=== PATIENT | male | born 1960 | race Caucasian/White ===

== ENCOUNTER 2021-06-23 11:55 | Emergency (ER) | payer OTHER ==
[2021-06-23 13:39] LABS: Absolute Lymphocytes (CBC) 1.6 K/uL (0.7-4.9); Basophils % 1.3 % (0-1.3); Hematocrit 42.8 % (39.6-49.0); Lymphocytes % 12.4 % (15.3-44.8); MPV 9.6 fL (7.6-11.3)
--- NOTE | 2021-06-23 13:57 | RAD REPORT ---
EXAM DESCRIPTION: CT - Abdomen Pelvis W Contrast - 06/23/2021 1:48 pm CLINICAL HISTORY: ABD PAIN COMPARISON: No comparisons TECHNIQUE: Biphasic, helical CT imaging of the abdomen and pelvis was performed following 100 ml non -ionic IV contrast. No oral contrast administered. All CT scans are performed using dose optimization technique as appropriate and may include automated exposure control or mA/KV adjustment according to patient size. FINDINGS: Stranding at the anterior right lung base is most likely scarring. No acute infiltrates se en. The liver, spleen, and pancreas show no suspicious findings. Gallbladder and biliary tree are also wi thout suspicious finding. Symmetric renal function is seen with no hydronephrosis or suspicious renal mass. No pyelonephritis o r acute parenchymal process. No bladder abnormalities. No adrenal abnormalities. Small 12 mm cyst is present posterior mid left kidney. No gastric dilatation or wall thickening. A few minimally prominent small bowel loops are present wit hout discrete mass or wall thickening. No colon mass or colon dilatation seen. Diverticulosis is mini mal. No appendicitis. No free air, free fluid or inflammatory stranding. No mass or bulky lymphaden opathy. Minimal fat extending into each inguinal canal. No suspicious bony findings. IMPRESSION: Contrast enhanced CT abdomen and pelvis imaging shows no emergent finding. Patient has a few minimally prominent small bowel loops in the mid abdomen. This is nonspecific but c ould indicate a mild enteritis.
[2021-06-23 14:10] LABS: ALT/SGPT 32 U/L (12-78); Albumin 3.3 g/dL (3.4-5.0); Alkaline Phosphatase 84 U/L (45-117); BUN Blood Urea Nitrogen 16 mg/dL (7-18); Bicarbonate 28 mmol/L (21-32); Bilirubin Direct < 0.1 mg/dL (0-0.2); Bilirubin Total 0.4 mg/dL (0.2-1.0); Glucose Level 101 mg/dL (74-106); Lipase 190 U/L (73-393); Protein, Total 7.7 g/dL (6.4-8.2); Sodium Level 138 mmol/L (136-145)
[2021-06-23 14:11] LABS: AST/SGOT 21 U/L (15-37); Potassium 4.7 mmol/L (3.5-5.1)
[2021-06-23] MEDS ORDERED: MORPHINE 4 MG/ML SYR ONE (15:24)
[2021-06-23] MEDS ORDERED: ONDANSETRON 4 MG/2 ML VIAL ONE (15:25)
[2021-06-23] MEDS ORDERED: MAGNES/ALUMIN/SIMET 30ML UCUP ONE (16:35)
[2021-06-23] MEDS ORDERED: LIDOCAINE VISCOUS 2% SOLN 15 ML UDC ONE (16:35)
[2021-06-23] MEDS ORDERED: FAMOTIDINE 20 MG/2 ML VIAL IV ONE (16:35)
--- NOTE | 2021-06-23 16:38 | ER ---
Nurse's Notes [facility] Name: Lit Kyle Age: 61 yrs Sex: Male : 1960 Arrival Date: 06/23/2021 Time: 11:56 Bed DIS2 Private MD: Diagnosis: Abdominal pain, unspecified-mild enteritis;Vomiting;Diarrhea, unspecified Presentation: 06/23 13:20 Chief complaint: Patient states: has been having lower abd pain X 3 weeks, also having iw vomiting diarrhea , was seen at [facility] and told to come here. Coronavirus screen: Client presents with at least one sign or symptom that may indicate coronavirus-19. Ebola Screen: Patient negative for fever greater than or equal to 101.5 degrees Fahrenheit, and additional compatible Ebola Virus Disease symptoms Patient denies exposure to infectious person. Patient denies travel to an Ebola-affected area in the 21 days before illness onset. No symptoms or risks identified at this time. Initial Sepsis Screen: Does the patient meet any 2 criteria? No. Patient's initial sepsis screen is negative. Does the patient have a suspected source of infection? No. Patient's initial sepsis screen is negative. Risk Assessment: Do you want to hurt yourself or someone else? Patient reports no desire to harm self or others. Onset of symptoms was May 2021. 13:20 Method Of Arrival: Ambulatory iw 13:20 Acuity: SAHARA 3 iw Historical: - Allergies: 13:29 No Known Allergies; iw - Immunization history:: Adult Immunizations unknown. - Social history:: Smoking status: unknown. Screenin:30 Abuse screen: Denies threats or abuse. Denies injuries from another. Nutritional iw screening: No deficits noted. Tuberculosis screening: No symptoms or risk factors identified. Fall Risk IV access (20 points). Assessment: 13:29 General: Appears uncomfortable, ill, Behavior is cooperative. Pain: Complains of pain iw in abdomen. GI: Abd is soft X 4 quads Abdomen is tender to palpation in right upper quadrant and left upper quadrant Reports upper abdominal pain, nausea, vomiting. Vital Signs: 13:20 BP 157 / 94; Pulse 61; Resp 18 S; Temp 98.7; Pulse Ox 100% on R/A; iw ED Course: 11:56 Patient arrived in ED. am2 13:22 Triage completed. iw 13:29 Jazzmine Lucero RN is Primary Nurse. iw 13:29 Inserted saline lock: 20 gauge in right antecubital area, using aseptic technique. iw Blood collected. 13:40 Patient has correct armband on for positive identification. iw 13:48 CT Abd/Pelvis - IV Contrast Only In Process Unspecified. EDMS 14:57 Cornelius Crum NP is PHCP. pm1 14:57 Mamadou Alfaro MD is Attending Physician. pm1 15:00 No provider procedures requiring assistance completed. iw 16:58 IV discontinued, intact, bleeding controlled, No redness/swelling at site. Pressure iw dressing applied. 16:59 Arm band placed on. iw Administered Medications: 15:17 Drug: morphine 4 mg Route: IVP; Site: right antecubital; iw 15:30 Follow up: Response: No adverse reaction iw 15:17 Drug: Zofran (Ondansetron) 4 mg Route: IVP; Site: right antecubital; iw 15:40 Follow up: Response: No adverse reaction iw 16:17 Drug: GI Cocktail without - (Maalox Suspension 30 ml, Lidocaine Liquid 2 % 15 iw ml) Route: PO; 16:40 Follow up: Response: No adverse reaction iw 16:18 Drug: Pepcid (famotidine) 20 mg Route: IVP; Site: right antecubital; iw 16:25 Follow up: Response: No adverse reaction iw 20:24 Not Given (Patient Refused): NS 0.9% 500 ml IV at bolus once iw Outcome: 16:37 Discharge ordered by MD. pm1 16:59 Discharged to home ambulatory, with family. iw 16:59 Condition: good 16:59 Discharge instructions given to patient, Instructed on discharge instructions, follow up and referral plans. medication usage, Demonstrated understanding of instructions, follow-up care, medications, Prescriptions given X 3. 17:00 Patient left the ED. iw Signatures: Dispatcher [employer] [facility] Jazzmine Lucero RN RN iw Cornelius Crum NP [employer]PER[employer] pm1 Fabi Ellsworth am2
--- NOTE | 2021-06-23 16:38 | EDPHYS ---
Physician Documentation [facility] Name: Lit Kyle Age: 61 yrs Sex: Male : 1960 Arrival Date: 06/23/2021 Time: 11:56 Bed DIS2 Private MD: ED Physician Mamadou Alfaro HPI: 06/23 13:29 This 61 yrs old Male presents to ER via Ambulatory with complaints of pm1 Abdominal Pain. 13:29 The patient presents with abdominal pain that is diffuse. Onset: The symptoms/episode pm1 began/occurred 3 week(s) ago. The symptoms do not radiate. Associated signs and symptoms: Pertinent positives: nausea, vomiting, and diarrhea, Pertinent negatives: chest pain, fever, shortness of breath. The symptoms are described as achy. Modifying factors: The symptoms are alleviated by burping and eating. Severity of pain: in the emergency department the pain is actually worse. The patient has been recently seen by a physician: with similar presenting complaints, Patient was seen at [facility] for the same symptoms three weeks ago. Was diagnosed with covid symptoms with a negative test result and was recommended self quarantine. Prescribed antibiotics for pneumonia. Patient reports chronic cough without any shortness of breath. Smoker. Patient denies alcohol consumption for the past three weeks except for birthday celebration yesterday. Drank 4 beers.. 13:29 Patient went to [facility] today and was directed to ER for evalution. pm1 Historical: - Allergies: 13:29 No Known Allergies; iw - Immunization history:: Adult Immunizations unknown. - Social history:: Smoking status: unknown. ROS: 13:34 Constitutional: Negative for fever, chills, and weight loss, Cardiovascular: Negative pm1 for chest pain, palpitations, and edema, Respiratory: Negative for shortness of breath, cough, wheezing, and pleuritic chest pain. 13:34 Back: Negative for injury and pain, : Negative for injury, bleeding, discharge, and swelling, MS/Extremity: Negative for injury and deformity, Skin: Negative for injury, rash, and discoloration, Neuro: Negative for headache, weakness, numbness, tingling, and seizure. 13:34 Respiratory: Positive for cough, Negative for shortness of breath. 13:34 Abdomen/GI: Positive for abdominal pain, nausea, vomiting, and diarrhea. 13:34 All other systems are negative. Exam: 13:36 Constitutional: This is a well developed, well nourished patient who is awake, alert, pm1 and in no acute distress. 13:36 Head/Face: Normocephalic, atraumatic. 13:36 Back: No spinal tenderness. No costovertebral tenderness. Full range of motion. Skin: Warm, dry with normal turgor. Normal color with no rashes, no lesions, and no evidence of cellulitis. MS/ Extremity: Pulses equal, no cyanosis. Neurovascular intact. Full, normal range of motion. 13:36 Eyes: Exam is negative for acute changes, Extraocular movements: no acute changes, Conjunctiva: no acute changes, no injection, Sclera: no acute changes, icterus, is not appreciated. 13:36 ENT: Mouth: no acute changes, Lips: normal, Oral mucosa: normal, pink and intact, moist. 13:36 Neck: Exam negative for acute changes, ROM/movement: is normal, is supple, no acute changes. 13:36 Cardiovascular: Exam negative for acute changes, Rate: normal, Rhythm: regular, Pulses: no pulse deficits are appreciated, Edema: is not appreciated. 13:36 Respiratory: Exam negative for acute changes, respiratory distress, shortness of breath. 13:36 Abdomen/GI: Inspection: obese Palpation: soft, in all quadrants, mild abdominal tenderness, in the upper abdomen. 13:36 Neuro: Exam negative for acute changes, Orientation: is normal, Mentation: is normal, Motor: is normal, moves all fours, Gait: is steady, at a normal pace, without difficulty. Vital Signs: 13:20 BP 157 / 94; Pulse 61; Resp 18 S; Temp 98.7; Pulse Ox 100% on R/A; iw MDM: 15:01 Patient medically screened. pm1 16:01 Data reviewed: vital signs. Data interpreted: Pulse oximetry: on room air is 100 %. pm1 Interpretation: normal. Counseling: I had a detailed discussion with the patient and/or guardian regarding: the historical points, exam findings, and any diagnostic results supporting the discharge/admit diagnosis, lab results, radiology results. 16:01 Counseling: I had a detailed discussion with the patient and/or guardian regarding: the pm1 need for outpatient follow up, a senior accounting clerk. 06/23 13:26 Order name: Basic Metabolic Panel; Complete Time: 14:56 pm1 06/23 13:26 Order name: CBC with Diff; Complete Time: 14:56 pm1 06/23 13:26 Order name: Hepatic Function; Complete Time: 14:56 pm1 06/23 13:26 Order name: Lipase; Complete Time: 14:56 pm1 06/23 16:36 Order name: CREATININE WHOLE BLOOD; Complete Time: 16:36 EDMS 06/23 13:26 Order name: IV Saline Lock; Complete Time: 14:47 pm1 06/23 13:26 Order name: Labs collected and sent; Complete Time: 14:47 pm1 06/23 13:26 Order name: CT Abd/Pelvis - IV Contrast Only; Complete Time: 14:56 pm1 06/23 13:26 Order name: Urine Dipstick-Ancillary (obtain specimen) pm1 Administered Medications: 15:17 Drug: morphine 4 mg Route: IVP; Site: right antecubital; iw 15:30 Follow up: Response: No adverse reaction iw 15:17 Drug: Zofran (Ondansetron) 4 mg Route: IVP; Site: right antecubital; iw 15:40 Follow up: Response: No adverse reaction iw 16:17 Drug: GI Cocktail without - (Maalox Suspension 30 ml, Lidocaine Liquid 2 % 15 iw ml) Route: PO; 16:40 Follow up: Response: No adverse reaction iw 16:18 Drug: Pepcid (famotidine) 20 mg Route: IVP; Site: right antecubital; iw 16:25 Follow up: Response: No adverse reaction iw 20:24 Not Given (Patient Refused): NS 0.9% 500 ml IV at bolus once iw Disposition: 17:02 Co-signature as Attending Physician, Mamadou Alfaro MD I agree with the assessment and kdr plan of care. Disposition Summary: 06/23/21 16:37 Discharge Ordered Location: Home pm1 Problem: new pm1 Symptoms: have improved pm1 Condition: Stable pm1 Diagnosis - Vomiting pm1 - Diarrhea, unspecified pm1 - Abdominal pain, unspecified - mild enteritis(06/23/21 16:41) pm1 Followup: pm1 - With: Emergency Department - When: As needed - Reason: Worsening of condition Followup: pm1 - With: Private Physician - When: 2 - 3 days - Reason: Recheck today's complaints, Continuance of care, Re-evaluation by your physician Discharge Instructions: - Discharge Summary Sheet pm1 - Abdominal Pain, Adult pm1 - Food Choices to Help Relieve Diarrhea, Adult pm1 - Diarrhea, Adult pm1 - Nausea and Vomiting, Adult pm1 Forms: - Medication Reconciliation Form pm1 - Thank You Letter pm1 - Work release form iw - Antibiotic Education pm1 - Prescription Opioid Use pm1 Prescriptions: - ondansetron 4 mg Oral tablet,disintegrating - place 1 tablet by TRANSLINGUAL route every 8 hours As needed; 12 tablet; pm1 Refills: 0, Product Selection Permitted - Flagyl 500 mg Oral Tablet - take 1 tablet by ORAL route every 8 hours for 10 days; 30 tablet; Refills: 0, pm1 Product Selection Permitted - Cipro 500 mg Oral Tablet - take 1 tablet by ORAL route every 12 hours for 10 days; 20 tablet; Refills: 0, pm1 Product Selection Permitted - dicyclomine 20 mg Oral Tablet - take 1 tablet by ORAL route every 6 hours As needed; 20 tablet; Refills: 0, pm1 Product Selection Permitted - Pepcid 20 mg Oral Tablet - take 1 tablet by ORAL route once daily for 10 days; 10 tablet; Refills: 0, pm1 Product Selection Permitted Signatures: Dispatcher [employer] Mamadou Montgomery MD MD kdr Williams, Irene, RN RN iw Cornelius Crum NP CASE ASSISTANT pm1 Corrections: (The following items were deleted from the chart) 16:41 16:37 Abdominal pain, unspecified pm1 pm1
[2021-06-23 17:09] VITALS: BP 157/94; TEMP 98.7; O2SAT 100
== END 2021-06-23 17:00 | disposition home or self-care (01) ==
LOC: ER 11:55
DX: R19.7 Diarrhea, unspecified (principal); R11.10 Vomiting, unspecified; Z20.822 Contact with and (suspected) exposure to COVID-19
CPT/HCPCS: 85025; 80048; 36415; 82565; 80076; 83690; 74177; U0003; Q9967; J2405